=== PATIENT | female | born 1955 | race Caucasian/White ===

== ENCOUNTER 2019-01-22 04:34 | Emergency (ER) | payer OTHER ==
[~2019-01-22] VITALS: Ht 165.1 cm; Wt 65.8 kg
[2019-01-22 04:34] VITALS: BP 150/78
[2019-01-22] MEDS ORDERED: ONDANSETRON 4 MG TAB.RAPDIS ONE (05:10)
[2019-01-22] MEDS ORDERED: AMOX/CLAVULANATE 875 MG TABLET ONE (05:10)
--- NOTE | 2019-01-22 05:18 | NUR ---
Patient discharged to home in stable condition. Rx and Written and verbal after care instructions given. Patient verbalizes understanding of instruction.
[2019-01-22] MEDS ORDERED: ONDANSETRON 4 MG TAB.RAPDIS SL ONE (05:30)
[2019-01-22] MEDS ORDERED: AMOX/CLAVULANATE 875 MG TABLET PO ONE (05:30)
== END 2019-01-22 05:19 | disposition home or self-care (01) ==
LOC: ER 04:40
DX: J02.9 Acute pharyngitis, unspecified (principal); J45.909 Unspecified asthma, uncomplicated
CPT/HCPCS: 99283; Q0162